=== PATIENT | female | born 1970 | race Caucasian/White ===

== ENCOUNTER 2020-10-07 12:07 | Emergency (ER) | payer OTHER ==
[~2020-10-07] VITALS: Ht 170.2 cm; Wt 72.6 kg
[2020-10-07 12:33] VITALS: BP 155/99
--- NOTE | 2020-10-07 12:38 | NUR ---
patient left in custody accompanied by [employer] in no distress.
== END 2020-10-07 12:38 ==
LOC: ER 12:11
DX: S91.302A Unspecified open wound, left foot, initial encounter (principal); I10 Essential (primary) hypertension; Z02.89 Encounter for other administrative examinations; X58.XXXA Exposure to other specified factors, initial encounter; Y93.89 Activity, other specified; Y92.89 Other specified places as the place of occurrence of the external cause; Y99.8 Other external cause status